=== PATIENT | female | born 1985 | race Caucasian/White ===

== ENCOUNTER → 2024-02-16 17:31 | Outpatient (REF) | payer BC, SELFPAY | LOC: WDC 17:31 | PROVIDERS: ATTENDING PHYSICIAN Physician Assistant | DX: Z12.31 Encounter for screening mammogram for malignant neoplasm of breast (principal) | CPT/HCPCS: 77063; 77067 ==

== ENCOUNTER → 2025-02-22 10:35 | Outpatient (REF) | payer BC, SELFPAY | LOC: WDC 10:35 | PROVIDERS: ATTENDING PHYSICIAN Physician Assistant Medical | DX: Z12.31 Encounter for screening mammogram for malignant neoplasm of breast (principal) | CPT/HCPCS: 77063; 77067 ==